=== PATIENT | male | born 1985 | race Caucasian/White ===

== ENCOUNTER 2016-07-11 23:07 | Emergency (ER) | payer OTHER ==
[~2016-07-11 23:07] MED LIST: BACTRIM DS TABL1 TA1 PO; IBUPROFEN800 MG PO; NO MEDICATIONS
== END 2016-07-12 01:25 ==
LOC: CED 23:07
DX: I46.9 Cardiac arrest, cause unspecified (principal); F19.10 Other psychoactive substance abuse, uncomplicated
CPT/HCPCS: 82947; 92950; 99285; 99291; J0171